=== PATIENT | male | born 1955 | race Caucasian/White ===

== ENCOUNTER 2016-11-23 15:04 | Outpatient (CLI) | payer OTHER ==
[2016-11-23 16:31] LABS: Hematocrit 47.7 % (42.0-52.0); Mean Platelet Volume 6.3 fL (7.4-10.4); Red Blood Cell (RBC) Count 5.17 mill/uL (4.70-6.10); White Blood Cell (WBC) Count 7.3 thou/uL (4.8-10.8)
[2016-11-23 16:44] LABS: Anion Gap 13 mmol/L (10-20); BUN (Urea Nitrogen) 16 mg/dL (8.4-25.7); Calc. Creatinine Clearance 0 mL/min (70-130); Calcium 9.2 mg/dL (7.8-10.44); Carbon Dioxide 27 mmol/L (22-29); Chloride 105 mmol/L (98-107); Estimated GFR-MDRD 54
== END 2016-11-23 15:05 | disposition home or self-care (01) ==
LOC: LABBT 15:04
PROVIDERS: ATTEND Orthopaedic Surgery
DX: Z01.818 Encounter for other preprocedural examination (principal); M75.101 Unspecified rotator cuff tear or rupture of right shoulder, not specified as traumatic
CPT/HCPCS: 80048; 85027; 93005; 93010

== ENCOUNTER 2016-11-26 12:51 | Day surgery (SDC) | payer OTHER ==
[2016-11-23 15:21] VITALS: BMI 25.0
[2016-11-26] MEDS ORDERED: Fentanyl 100 MCG/2 ML VIAL ONE ×2 (13:36→13:57)
[2016-11-26] MEDS ORDERED: Midazolam HCl 2 mg/2 ml Vial ONE ×2 (13:36→13:57)
[2016-11-26] MEDS ORDERED: Ropivacaine 0.2% HCl/PF 20 ML ONE (13:36)
[2016-11-26] MEDS ORDERED: Zolpidem Tartrate 5 MG TAB PO PRN (14:05)
[2016-11-26] MEDS ORDERED: Ropivacaine 0.2% 550 ML 550 ML NERVE BLCK SCH (14:05)
[2016-11-26] MEDS ORDERED: Ondansetron HCl/PF 4 MG/2 ML Vial IVP PRN (14:05)
[2016-11-26] MEDS ORDERED: Promethazine HCl 25 MG/ML VIAL IM PRN (14:05)
[2016-11-26] MEDS ORDERED: traMADol HCl 50 MG TAB PO PRN ×2 (14:05)
[2016-11-26] MEDS ORDERED: HYDROcodone/Acetaminophen 10/325 mg Tablet PO PRN ×2 (14:05)
[2016-11-26] MEDS ORDERED: Fentanyl 100 MCG/2 ML VIAL IV SCH (14:15)
[2016-11-26] MEDS ORDERED: Esmolol 100 MG/10 ML VIAL ONE (14:36)
[2016-11-26] MEDS ORDERED: Ketorolac Tromethamine 30 MG/ML VIAL ONE (14:36)
[2016-11-26] MEDS ORDERED: Ondansetron HCl/PF 4 MG/2 ML Vial ONE (14:36)
[2016-11-26] MEDS ORDERED: Dexamethasone 20 MG/5 ML VIAL ONE (14:36)
[2016-11-26] MEDS ORDERED: Lidocaine 1% PF 5 ML VIAL ONE (14:36)
[2016-11-26] MEDS ORDERED: Glycopyrrolate 0.2 MG/ML 5 ML SYRINGE ONE (14:36)
[2016-11-26] MEDS ORDERED: Propofol 200 MG/20 ML VIAL ONE (14:36)
--- NOTE | 2016-11-26 20:05 | OP ---
DATE OF PROCEDURE: 11/26/2016 PREOPERATIVE DIAGNOSES: 1. Massive rotator cuff tear of the right shoulder. 2. Severe tendinitis with longitudinal tearing of the biceps tendon of the right shoulder. POSTOPERATIVE DIAGNOSES: 1. Massive rotator cuff tear of the right shoulder. 2. Severe tendinitis with longitudinal tearing of the biceps tendon of the right shoulder. PROCEDURE: 1. Arthroscopy of the right shoulder with open biceps tenodesis. 2. Open repair of massive rotator cuff tear of the right shoulder. SURGEON: Carroll Gandara MD. ANESTHESIA: General. TECHNIQUE: The patient was given preoperative IV antibiotics, taken to the operating room, placed i n supine position. Satisfactory general anesthesia was performed. The patient was then placed in t he left lateral decubitus position. All bony prominences were well padded. The 15 pounds of tracti on was applied to the right upper extremity and the right shoulder and upper extremity was sterilely prepped and draped in the usual fashion. The shoulder scoped through the usual posterior, anterior and lateral portals. The patient was noted to have no significant arthritic changes in the shoulde r joint. There was tendinitis and longitudinal tears of the intra-articular portion of the biceps t endon. There was a massive tear easily visualized that involved the supraspinatus, infraspinatus, a nd went all the way to the teres minor through a small incision over the biceps sulcus in the proxim al humerus, a biceps tenodesis was performed. The intra-articular portion of the biceps was release d with the surface arthrowand and #1 Vicryl was used to suture the biceps tendon into the surroundin g soft tissue in the biceps tendon sulcus. The tendon was too damaged and too thin to actually perf ormed the usual biceps tenodesis using an anchor. The rotator cuff was then assessed because of the size of the tear. Incision was made through previous scar when he had previous surgery approximate ly 12 years ago and a longitudinal incision was made laterally at the anterior portion of the acromi on. The deltoid muscle was split and the rotator cuff was repaired using 2 double row anchors using the Arthrex 4.75 PushLock anchors. Had 2 double row repairs also and this was with FiberTape. Eac h of the #2 FiberWire that was attached to the most lateral anchors were also used to provide additi onal repair to the rotator cuff with simple sutures. This provided a good repair and good fixation of the rotator cuff back to the shoulder. The wounds were closed using 0 Vicryl for the fascia over the deltoid muscle and then over the fat and subcutaneous tissue, and all the skin incisions were c losed using 3-0 Rapide. A sterile dressing was applied. The patient was taken out of traction. He was awakened, extubated, and transferred to the recovery room in stable condition. ESTIMATED BLOOD LOSS: Minimal. COMPLICATIONS: None. DISCHARGE MEDICATIONS: Napoleon 10 one every 6 hours as needed for pain #50.
== END 2016-11-26 19:10 | disposition home or self-care (01) ==
LOC: SDC 12:51
PROVIDERS: ATTEND Orthopaedic Surgery
PROC: 0LQ14ZZ Repair Right Shoulder Tendon, Percutaneous Endoscopic Approach (ICD-10-PCS; principal; 2016-11-26)
PROC: 0LS14ZZ Reposition Right Shoulder Tendon, Percutaneous Endoscopic Approach (ICD-10-PCS; principal; 2016-11-26)
DX: M75.101 Unspecified rotator cuff tear or rupture of right shoulder, not specified as traumatic (principal); M75.21 Bicipital tendinitis, right shoulder; Z98.890 Other specified postprocedural states
CPT/HCPCS: A4306; C1713; J1100; J1885; J2001; J2250; J2405; J2704; J2795; J3010